=== PATIENT | male | born 1985 | race Hispanic/Latino ===

== ENCOUNTER 2020-05-27 22:28 | Inpatient (IN) | payer SELFPAY ==
[~2020-05-27] VITALS: Ht 157.5 cm; Wt 60.0 kg
[~2020-05-27 22:28] MED LIST: AMOXICILLIN500 MG PO; CORTISPORIN OP7.5 ML OP; NO; ULTRAM50 M1 PO
--- NOTE | 2020-05-27 23:00 | NUR ---
PT FROM WR TO ROOM 8 VIA W/C. MOTHER AT SIDE. DRU, REGISTRAR, INTERPRETING FOR PATIENT AND
--- NOTE | 2020-05-27 23:10 | NUR ---
[facility] CALLED TO REQUEST AN OFFICER COME TO INTERVIEW PT.
--- NOTE | 2020-05-28 | NUR ---
PT. MOM HELPED WASH PT. RESTING ON STRETCHER, NO C/O.
[2020-05-28 00:13] LABS: HEMATOCRIT 42.6 % (39.0-50.0); HEMOGLOBIN 15.2 g/dl (14.0-18.0); IMMATURE GRANULOCYTES 0.7 % (0.0-5.0); MEAN CELL VOLUME 82.1 fL CALC (80.0-100.0); MEAN CORPUSCULAR HGB 29.3 pG CALC (26.0-32.0); MEAN CORPUSCULAR HGB CONC 35.7 g/dL CAL (32.0-36.0); NEUT# 19.1 thou/uL (1.82-7.42); RED BLOOD COUNT 5.19 mill/uL (4.70-6.10); RED CELL DISTRI WIDTH 11.7 % (11.5-15.5)
[2020-05-28 00:28] LABS: URINE BILIRUBIN - DIPSTICK NEGATIVE (NEGATIVE); URINE BLOOD DIPSTICK LARGE (NEGATIVE); URINE COLOR YELLOW; URINE GLUCOSE - DIPSTICK 500 mg/dL (NEGATIVE); URINE KETONE >=80 mg/dL (NEGATIVE); URINE LEUK ESTERASE NEGATIVE (NEGATIVE); URINE NITRITE - DIPSTICK NEGATIVE (Negative); URINE PH 5.5 (4.5-8.0); URINE PROTEIN - DIPSTICK TRACE mg/dL (NEG-TRACE); URINE UROBILINOGEN - DIPSTICK 0.2 E.U./dL (0.2)
[2020-05-28 00:43] LABS: ALBUMIN 4.6 g/dL (3.2-5.0); ALKALINE PHOSPHATASE 153 u/l (38-126); BILIRUBIN, TOTAL 2.4 mg/dL (0.0-1.4); BUN 61 mg/dL (9-20); BUN/CREATININE RATIO 39 (12-20 (CALC)); CARBON DIOXIDE 16 mmol/l (22-30); CHLORIDE 92 mmol/l (95-108); CREATININE 1.6 mg/dL (0.7-1.3); ETHYL ALCOHOL 0 mg/dl (0-30); GFR 50 ML/MIN (>=60 (CALC)); GFR FOR AFR.AMER. 60 ML/MIN (>=60 (CALC)); MAGNESIUM 2.8 mg/dL (1.6-2.3); SGOT/AST 394 u/l (17-59); SODIUM 128 mmol/l (137-146); TOTAL PROTEIN 7.8 g/dL (6.3-8.2)
[2020-05-28 00:46] LABS: URINE SQUAMOUS EPITHELIAL CELL FEW EPI/hpf (0-FEW); URINE WBC 0-2 WBC/hpf (0-5)
[2020-05-28 00:47] LABS: URINE URIC ACID CRYSTALS FEW lpf
[2020-05-28 00:51] LABS: ANION GAP 26 (6-22 (CALC)); POTASSIUM 5.6 mmol/l (3.5-5.1)
[2020-05-28 00:52] LABS: MYOGLOBIN 1995 ng/mL (0 - 121)
--- NOTE | 2020-05-28 01:00 | NUR ---
AT BEDSIDE WITH INTERPRETUER TO DISCUSS ADMISSION.
[2020-05-28 01:25] LABS: CPK 24107 u/l (52-200)
--- NOTE | 2020-05-28 02:32 | NUR ---
REPORT TO JONATHAN/[facility]
--- NOTE | 2020-05-28 02:40 | NUR ---
PT REMAINS CONSCIOUS BUT HAS EYES CLOTHES. APPEARS ORIENTED. GABRIEL. RESP EASY REG. VSS.
--- NOTE | 2020-05-28 02:40 | NUR ---
MOTHER TO HOME. ADVISED OF COVID VISITING VIA INTERPRETUER. PT VOIDED 800 CC IN URINAL. TO FLOOR WITH BICARB DRIP INFUSING.
--- NOTE | 2020-05-28 02:50 | NUR ---
PT ARRIVED TO MS2 VIA STRETCHER ACCOMPANIED BY ER NURSE, PT SHAKING, TRANSFERRED SELF FROM STRETCHER TO BED, PT TOLERATED WELL. ORIENTED PT TO ROOM AND CALL LIGHT, DISCUSSED POC, PT ALERT AND ORIENTED X4, PT FAROESE SPEAKING ONLY, BOAT MECHANIC SPEAKS FAROESE. PT HAS MULTIPLE SCRATCHES ALL OVER, SEEE CHART FOR PHOTO. CALL LIGHT IN REACH, CONTINUE TO MONITOR. ADMISSION ASSESSMENT COMPLETED.
[2020-05-28 03:02] VITALS: BP 122/90
[2020-05-28 04:33] LABS: HEMOGLOBIN 13.4 g/dl (14.0-18.0); IMMATURE GRANULOCYTES 0.5 % (0.0-5.0); MEAN CORPUSCULAR HGB 29.3 pG CALC (26.0-32.0); MEAN CORPUSCULAR HGB CONC 35.3 g/dL CAL (32.0-36.0); NEUT# 14.19 thou/uL (1.82-7.42); RED BLOOD COUNT 4.58 mill/uL (4.70-6.10)
[2020-05-28 04:57] LABS: ANION GAP 18 (6-22 (CALC)); BUN 47 mg/dL (9-20); BUN/CREATININE RATIO 47 (12-20 (CALC)); CARBON DIOXIDE 19 mmol/l (22-30); CHLORIDE 100 mmol/l (95-108); GFR > 60 ML/MIN (>=60 (CALC)); GFR FOR AFR.AMER. > 60 ML/MIN (>=60 (CALC)); SODIUM 133 mmol/l (137-146)
[2020-05-28 05:00] LABS: POTASSIUM 4.4 mmol/l (3.5-5.1)
--- NOTE | 2020-05-28 07:46 | NUR ---
Patient is screened for rehab interventions and no needs are identified at this time
[2020-05-28 08:00] VITALS: BP 145/79
--- NOTE | 2020-05-28 09:00 | NUR ---
PT IS SYRIAC ONLY PT, SEEN AWAKE, ALERT, ORIENTED X 3. LUNGS CLEAR, RA. SKIN IS ALL SCRATCHED UP PER HIS STORY OF BEING IN [place] FOR 3 DAYS.
--- NOTE | 2020-05-28 12:13 | NUR ---
SISTER ADY MALCOLM CALLED, LEFT [phone] NUMBER WHERE SHE CAN BE REACHED IF NEEDED.
--- NOTE | 2020-05-28 15:02 | NUR ---
PT HAS BEEN SHOWERED THIS AFTERNOON. NO REPORT OF PAIN.
--- NOTE | 2020-05-28 16:25 | NUR ---
PT CONTINUES AT REST IN THE BED WITHOUT COMPLAINT OR EVIDENCE OF DISTRESS.
[2020-05-28 16:57] VITALS: BP 144/71
--- NOTE | 2020-05-28 20:43 | NUR ---
PATIENT IS ALERT AND ORIENTED X3. ABLE TO MAKE NEEDS KNOWN. RESPIRATIONS EASY ON ROOM AIR. RESTING WITH EYES CLOSED. YI SPEAKING ONLY. SKIN WARM AND DRY. SCRATCHES NOTED ALL OVER BODY. NO COMPLAINTS VERBALIZED. VAD #20 RAC INFUSING NS @150 ML/HR. BED IN LOW POSITION. CALL LIGHT WITHIN REACH.
[2020-05-28 21:00] VITALS: BP 139/64
[2020-05-29 00:30] VITALS: BP 123/64
[2020-05-29 04:25] VITALS: BP 124/87
[2020-05-29 05:41] LABS: HEMATOCRIT 34.4 % (39.0-50.0); HEMOGLOBIN 11.8 g/dl (14.0-18.0); MEAN CELL VOLUME 86.2 fL CALC (80.0-100.0); MEAN CORPUSCULAR HGB 29.6 pG CALC (26.0-32.0); MEAN CORPUSCULAR HGB CONC 34.3 g/dL CAL (32.0-36.0); RED BLOOD COUNT 3.99 mill/uL (4.70-6.10); RED CELL DISTRI WIDTH 12.3 % (11.5-15.5)
[2020-05-29 05:58] LABS: ALKALINE PHOSPHATASE 114 u/l (38-126); CHLORIDE 103 mmol/l (95-108); CREATININE 0.6 mg/dL (0.7-1.3); GFR > 60 ML/MIN (>=60 (CALC)); GFR FOR AFR.AMER. > 60 ML/MIN (>=60 (CALC)); MAGNESIUM 2.1 mg/dL (1.6-2.3); POTASSIUM 4.4 mmol/l (3.5-5.1); SGOT/AST 119 u/l (17-59); SODIUM 135 mmol/l (137-146)
--- NOTE | 2020-05-29 06:05 | NUR ---
PATIENT RESTING WITH EYES CLOSED. RESPIRATIONS EASY ON ROOM AIR. SKIN WARM AND DRY. DENIES PAIN. IVF INFUSING ORDERED. CONTINUES ON ABT THERAPY FOR INFECTION. BED IN LOW POSITION. CALL LIGHT WITHIN REACH.
[2020-05-29 07:04] LABS: ALBUMIN 3.1 g/dL (3.2-5.0); ANION GAP 8 (6-22 (CALC)); BILIRUBIN, TOTAL 1.3 mg/dL (0.0-1.4); BUN 14 mg/dL (9-20); BUN/CREATININE RATIO 23 (12-20 (CALC)); CARBON DIOXIDE 28 mmol/l (22-30); TOTAL PROTEIN 5.7 g/dL (6.3-8.2)
[2020-05-29 07:05] LABS: CPK 4783 u/l (52-200)
[2020-05-29 09:26] VITALS: BP 178/87
--- NOTE | 2020-05-29 09:26 | NUR ---
PT SITTING IN BED. A&O X3. REPORTS TO HAVE BEEN "LOST" A COUPLE OF DAYS OUT IN THE OR[place]. STATES THAT HE WAS WORKING AND FEARED FOR HIS LIFE AFTER BEING THREATENED BY [employer]. PT REPORTS TO BE FEELING BETTER THIS MORNING. PT WAS NOT AWARE THAT HE WAS DIABETIC, EDUCATED PT ON DIABETIC TREATMENT AND DIET, PT WELL RECEPTIVE OF INFORMATION. MULTIPLE ABRAISONS NOTED THROUGHOUT BODY, STATES THAT THEY ARE DUE TO THE TREES WHERE HE WAS AT. BP ELEVATED AND SLIGHTLY TACHYCARDIC, RADHA BARRY TO BE NOTIFIED. NO OTHER NEEDS AT THIS TIME. ASSESSMENT COMPLETED. DISCUSSED POC. CALL LIGHT IN REACH. CONTINUE TO MONITOR.
--- NOTE | 2020-05-29 09:30 | NUR ---
RADHA BARRY NOTIFIED. PT TO BE STARTED ON LISINOPRIL.
--- NOTE | 2020-05-29 11:31 | NUR ---
PT SITTING IN BED. NO NEEDS AT THIS TIME. CALL LIGHT IN REACH. CONTINUE TO MONITOR.
[2020-05-29 15:00] VITALS: BP 136/62
--- NOTE | 2020-05-29 17:43 | NUR ---
PT SITTING IN BED WITH MOM AT BEDSIDE. EDUCATION ON METFORMIN GIVEN. NO OTHER NEEDS AT THIS TIME. CALL LIGHT IN REACH. CONTINUE TO MONITOR.
[2020-05-29 20:00] VITALS: BP 152/87
--- NOTE | 2020-05-29 20:47 | NUR ---
PATIENT AWAKE AND ALERT AND ORIENTED X3. ABLE TO MAKE NEEDS KNOWN. BELARUSIAN SPEAKING. REPORTS FEELING MUCH BETTER. DENIES PAIN. BREATHING EASY. LUNGS CTA. SKIN WARM AND DRY. PATIENT UP TAKING SHOWER AT THIS TIME WITH VAD SEALED AND TAPED FOR PROTECTION. BED IN LOW POSITION. CALL LIGHT WITHIN REACH.
--- NOTE | 2020-05-30 00:20 | NUR ---
PATIENT RESTING QUIETLY WITH EYES CLOSED. RESPIRATIONS EASY ON ROOM AIR. IVF INFUSING ORDERED. ANCEF GIVEN. NO COMPLAINTS. BED IN LOW POSITION. CALL LIGHT WITHIN REACH.
[2020-05-30 03:50] VITALS: BP 136/76
--- NOTE | 2020-05-30 04:00 | NUR ---
PATIENT RESTING IN BED IVF INFUSING ORDERED. PATIENT ABDOMINAL PAIN MUCH IMPROVED. 11/14. CURRENTLY HAS HEADACHE 02/13. TYLENOL 650MG PO GIVEN. SCDS IN PLACE. BED IN LOW POSITION. CALL LIGHT WITHIN REACH.
--- NOTE | 2020-05-30 04:00 | NUR ---
PATIENT RESTING WITH EYES CLOSED. RESPIRATIONS EASY ON ROOM AIR. IVF INFUSING ORDERED. DENIES PAIN. HAD NORMAL FORMED BM BEGINNING OF SHIFT. BED IN LOW POSITION. CALL LIGHT WITHIN REACH.
[2020-05-30 05:14] LABS: HEMATOCRIT 34.2 % (39.0-50.0); HEMOGLOBIN 11.5 g/dl (14.0-18.0); MEAN CELL VOLUME 86.8 fL CALC (80.0-100.0); MEAN CORPUSCULAR HGB 29.2 pG CALC (26.0-32.0); MEAN CORPUSCULAR HGB CONC 33.6 g/dL CAL (32.0-36.0); RED BLOOD COUNT 3.94 mill/uL (4.70-6.10); RED CELL DISTRI WIDTH 11.9 % (11.5-15.5)
[2020-05-30 05:36] LABS: ANION GAP 9 (6-22 (CALC)); BUN 11 mg/dL (9-20); BUN/CREATININE RATIO 20 (12-20 (CALC)); CARBON DIOXIDE 28 mmol/l (22-30); CHLORIDE 103 mmol/l (95-108); CREATININE 0.5 mg/dL (0.7-1.3); GFR > 60 ML/MIN (>=60 (CALC)); GFR FOR AFR.AMER. > 60 ML/MIN (>=60 (CALC)); POTASSIUM 4.2 mmol/l (3.5-5.1); SODIUM 136 mmol/l (137-146)
[2020-05-30 05:44] LABS: CPK 2177 u/l (52-200)
[2020-05-30 07:26] VITALS: BP 129/74
--- NOTE | 2020-05-30 07:26 | NUR ---
PT SITTING IN BED. A&O X3. NO DISTRESS NOTED. PT STATES HE IS FEELING BETTER THIS MORNING. PT DENIES ANY PAIN AT THIS TIME. ASSESSMENT COMPLETED. DISCUSSED POC. CALL LIGHT IN REACH. CONTINUE TO MONITOR.
[2020-05-30 08:57] VITALS: BP 129/74
[2020-05-30] MEDS ORDERED: METFORMIN500 M2 PO (10:48)
[2020-05-30] MEDS ORDERED: LISINOPRIL2.5 MG PO (10:48)
[2020-05-30] MEDS ORDERED: KEFLEX500 M1 PO (10:51)
--- NOTE | 2020-05-30 14:57 | NUR ---
Discharge instructions given to both patient and mother. Patient verbalizes understanding of same. Discharged in stable condition via wheelchair to home accompanied by staff and mother. Explained importance of monitoring blood sugar and blood pressure. Diabetic meal ideas along with education provided. Glucometer prescription given to pt. All belongings sent with pt.
== END 2020-05-30 14:54 | disposition home or self-care (01) | DRG 558 ==
LOC: ED 22:28 → ED-I 05-28 00:57 → ED 05-28 01:15 → MS2 05-28 01:16
PROVIDERS: Family Medicine; Nurse Practitioner; ADMIT Internal Medicine; ATTEND Internal Medicine
DX: M62.82 Rhabdomyolysis (principal); N17.9 Acute kidney failure, unspecified; E86.0 Dehydration; E11.65 Type 2 diabetes mellitus with hyperglycemia; I10 Essential (primary) hypertension; S50.812A Abrasion of left forearm, initial encounter; S50.811A Abrasion of right forearm, initial encounter; S80.812A Abrasion, left lower leg, initial encounter; S80.811A Abrasion, right lower leg, initial encounter; T14.8XXA Other injury of unspecified body region, initial encounter; F15.129 Other stimulant abuse with intoxication, unspecified; R76.8 Other specified abnormal immunological findings in serum; X58.XXXA Exposure to other specified factors, initial encounter; Y92.74 Orchard as the place of occurrence of the external cause; Y99.0 Civilian activity done for income or pay; Z20.828 Contact with and (suspected) exposure to other viral communicable diseases
CPT/HCPCS: J1650

== ENCOUNTER 2022-09-12 11:42 | Emergency (ER) | payer SELFPAY ==
[~2022-09-12 11:42] MED LIST changes: +KEFLEX500 M1 PO; +LISINOPRIL2.5 MG PO; +METFORMIN500 M2 PO
== END 2022-09-12 13:25 | disposition left against medical advice (07) | DRG 951 ==
LOC: ED 11:42 → LWOBS 13:24 → ED 13:24 → LWOBS 13:25
DX: Z53.21 Procedure and treatment not carried out due to patient leaving prior to being seen by health care provider (principal)

== ENCOUNTER 2023-10-08 20:03 | Emergency (ER) | payer SELFPAY ==
[~2023-10-08] VITALS: Ht 157.5 cm; Wt 75.0 kg
[2023-10-08] MEDS ORDERED: POVIDONE IODINE 0.5 OZ/BTL TOP ONE (20:30)
[2023-10-08] MEDS ORDERED: Diph, Acellular Pertussis, Tet 0.5 ML/VIAL (Tdap) SDV IM ONE (20:30)
[2023-10-08] MEDS ORDERED: LIDOCAINE W/ EPINEPHRINE 10 MG/ML INJ STI ONE (20:30)
[2023-10-08] MEDS ORDERED: NEOMYCIN-BACITRACIN-POLYMYXIN 0.5 GM/PAK PAK TOP ONE (20:30)
[2023-10-08 22:53] VITALS: BP 134/86
== END 2023-10-08 23:05 | disposition home or self-care (01) | DRG 605 ==
LOC: ED 20:03
PROC: 0HQFXZZ Repair Right Hand Skin, External Approach (ICD-10-PCS; principal; 2023-10-08)
DX: S61.411A Laceration without foreign body of right hand, initial encounter (principal); W26.8XXA Contact with other sharp object(s), not elsewhere classified, initial encounter; Y92.009 Unspecified place in unspecified non-institutional (private) residence as the place of occurrence of the external cause